=== PATIENT | female | born 1930 | race Caucasian/White ===

== ENCOUNTER 2017-10-20 19:08 | Emergency (ER) | payer OTHER ==
[~2017-10-20] VITALS: Ht 165.1 cm; Wt 94.3 kg
--- NOTE | 2017-10-20 19:11 | NUR ---
BIBRA 39 FROM HOME FOR ALTERED MENTAL STATUS. PT NONVERBAL, RESPONSE TO PAINFUL STIMULI. RR EVEN AND UNLABORED. NO SOB NOTED. NAD NOTE.D NO NVD AT THIS TIME. PT GOWNED AND PLACED ON MONITOR. DR HARRINGTON AT BEDSIDE FOR EVAL.
--- NOTE | 2017-10-20 19:51 | NUR ---
COLLECTED URINE VIA STRAIGHT CATH, URINE COLLECTED. CALL LAB FOR PRESALES CONSULTANT.
[2017-10-20 19:54] LABS: CALCIUM, SERUM 9.4 mg/dL (8.5-10.1); CARBON DIOXIDE 24 mmol/L (21-32); CHLORIDE 95 mmol/L (98-107); CREATININE 1.6 mg/dL (0.6-1.3); GLUCOSE 160 mg/dL (74-106); POTASSIUM 5.5 mmol/L (3.5-5.1); SODIUM SERUM 130 mmol/L (136-145); UREA NITROGEN, BLOOD 13 mg/dL (7-18)
[2017-10-20 19:57] LABS: INR 1.03 (0.85-1.15)
[2017-10-20 19:58] LABS: BASOPHILS % (AUTO) 0.1 % (0.0-2.0); EOSINOPHILS % (AUTO) 0.2 % (0.0-6.0); HEMATOCRIT 36 % (33-45); HEMOGLOBIN 12.5 g/dL (11.5-14.8); LYMPHOCYTES # (AUTO) 0.7 /CMM (0.8-4.8); LYMPHOCYTES % (AUTO) 8.3 % (20.0-44.0); MEAN CORPUSCULAR HEMOGLOBIN 42 PG (26.0-33.0); MEAN CORPUSCULAR HGB CONC 35 g/dl (31.0-36.0); MEAN CORPUSCULAR VOLUME 120 fL (82-100); MONOCYTES # (AUTO) 0.2 /CMM (0.1-1.30); MONOCYTES % (AUTO) 1.8 % (2.0-12.0); NEUTROPHILS # (AUTO) 7.5 /CMM (1.8-8.9); NEUTROPHILS % (AUTO) 89.6 % (43.0-81.0); PLATELET COUNT (AUTO) 144 /CMM (150-450); RDW COEFFICIENT OF VARIATION 17.7 (11.5-15.0); RED BLOOD CELL COUNT(AUTO) 2.98 MIL/uL (4.0-5.2); WHITE BLOOD COUNT (AUTO) 8.4 K/uL (4.3-11.0)
[2017-10-20 19:59] LABS: ACETAMINOPHEN 5 ug/ml (10-30); ALANINE AMINOTRANSFERASE 52 U/L (12-78); ALBUMIN 2.4 g/dL (3.4-5.0); ALCOHOL, BLOOD < 3 mg/dL (0-0); ALKALINE PHOSPHATASE 124 U/L (46-116); ASPARTATE AMINOTRANSFERASE 70 U/L (15-37); BILIRUBIN,DIRECT 0.3 mg/dL (0.0-0.2); BILIRUBIN,TOTAL 0.8 mg/dL (0.2-1.0); TOTAL PROTEIN, SERUM 6.1 g/dL (6.4-8.2)
[2017-10-20] MEDS: IV NS 0.9% 1,000 ML BAG IV ONE (19:59)
[2017-10-20 20:03] LABS: TROPONIN I < 0.017 ng/mL (0.00-0.056)
[2017-10-20 20:04] LABS: APPEARANCE,URINE Cloudy (CLEAR); BILIRUBIN,URINE MODERATE (NEGATIVE); BLOOD, URINE Moderate Ery/uL (NEGATIVE); COLOR,URINE Yellow (YELLOW); KETONES,URINE 15 (NEGATIVE); LEUKOCYTE ESTERASE ,URINE Large (NEGATIVE); NITRITE, URINE Negative (NEGATIVE); PROTEIN,URINE 30 mg/dl (NEGATIVE); UGLUCOSE Negative (NEGATIVE)
[2017-10-20 20:06] LABS: SALICYLATE 1.3 mg/dL (2.8-20.0)
[2017-10-20 20:09] LABS: SERUM AMMONIA 15 umol/L (11-32)
--- NOTE | 2017-10-20 20:10 | NUR ---
RADIOLOGY AT BEDSIDE FOR CXR
--- NOTE | 2017-10-20 20:13 | NUR ---
PT TO CT.
[2017-10-20 20:26] LABS: BACTERIA,URINE Many /HPF (None Seen); SQUAMOUS EPITHELIAL CELL,UR Moderate /HPF (None Seen); WBC,URINE TOO NUMEROUS TO COUN /HPF (0-3)
--- NOTE | 2017-10-20 20:30 | NUR ---
PT RETURNED FROM CT
[2017-10-20 20:44] LABS: BAND % (MANUAL) 16 % (0.0-5.0); LYMPHOCYTES % (MANUAL) 11 % (16-48); MONOCYTES % (MANUAL) 5 % (0-11.0); NEUTROPHILS % (MANUAL) 68 (42-76)
--- NOTE | 2017-10-20 20:50 | NUR ---
CALLED [facility] SPOKE WITH NOAH. EXPECTING A CALL BACK FROM A [facility]
--- NOTE | 2017-10-20 21:03 | NUR ---
NGT PLACED ON RIGHT NARE AT 65CM, NOTED GASTRIC GREENISH CONTENT, CLAMPED. VERIFIED BY 2ND RN MEEK.
[2017-10-20] MEDS ORDERED: SODIUM POLYSTYRENE SULFONATE 15 G/60 ML BOTTLE ONE (21:06)
[2017-10-20] MEDS ORDERED: SODIUM BICARBONATE SYR 50 MEQ/50 ML DISP.SYRIN ONE (21:08)
[2017-10-20] MEDS ORDERED: CALCIUM CHLORIDE 1,000 MG/10 ML DISP.SYRIN ONE (21:08)
[2017-10-20] MEDS: SODIUM BICARBONATE SYR 100 MEQ in IV D5W 1,000 ML IV ONE (21:11)
[2017-10-20] MEDS: SODIUM BICARBONATE SYR 50 MEQ/50 ML DISP.SYRIN IV ONE (21:16)
[2017-10-20] MEDS: CALCIUM CHLORIDE 1,000 MG/10 ML DISP.SYRIN IV ONE (21:18)
[2017-10-20] MEDS: SODIUM POLYSTYRENE SULFONATE 15 G/60 ML BOTTLE NG ONE (21:18)
[2017-10-20] MEDS ORDERED: LEVOFLOXACIN 500 MG /D5W 100ML 100 ML IV ONE (21:36)
[2017-10-20 21:40] LABS: THYROID STIMULATING HORMONE 3.421 uIU/mL (0.358-3.74)
[2017-10-20] MEDS: LEVOFLOXACIN 500 MG /D5W 100ML 500 MG/100 ML PIGGYBACK IV ONE (21:41)
--- NOTE | 2017-10-20 21:56 | NUR ---
[facility] CALLED, PATIENT WILL BE TRANSFERED TO [facility] ED ACCEPTING DR CABELLO ALS ETA [id number]
--- NOTE | 2017-10-20 22:08 | NUR ---
REPORT GIVEN TO FELIBERTO TORREZ FROM [facility] FOR [facility]. ETA ORTHODONTIC LAB TECHNICIAN [id number]
[2017-10-20 22:39] VITALS: BP 136/100
--- NOTE | 2017-10-20 22:42 | NUR ---
REPORT GIVEN TO [facility] EMT FOR [facility]. VSS. PT IV INTACT AND PATENT. NO S/S INFECTION NOTED. PT WITH ALL PERSONAL BELONGINGS. PT TO BE TRANSFERRED TO [facility] VIA GURNEY. NGT INTACT AND CLAMPED. PER [facility] TOOK OVER CARE
== END 2017-10-20 23:03 | disposition short-term general hospital (02) ==
LOC: ER 19:11
DX: G93.40 Encephalopathy, unspecified (principal); E87.5 Hyperkalemia; N28.9 Disorder of kidney and ureter, unspecified; I10 Essential (primary) hypertension; N39.0 Urinary tract infection, site not specified; K44.9 Diaphragmatic hernia without obstruction or gangrene; R51 Headache
CPT/HCPCS: 36415; 70450-TC; 71045-TC; 80048-TC; 80076-TC; 80305; 81000-TC; 82140-TC; 82962-TC; 84443-TC; 84484-TC; 85025-TC; 85730-TC; 87081-TC; 87086-TC; 87186-TC; A4606; G0480; J1956; J3490; J7070; Z7610